=== PATIENT | male | born 1990 ===

== ENCOUNTER 2018-01-07 10:32 | Emergency (ER) | payer BC, OTHER ==
--- NOTE | 2018-01-07 11:09 | C.PDOC ---
History Of Present Illness 27 y/o male presents to the ED complaining of persistent right knee pain s/p injury on 01/01/18. Patient reports twisting the right knee while at work. Denies direct trauma or fall. Of note, patient is s/p MRI at [place] for the same on 01/01, and states "they said no ligament or cartilage injury, only swelling and water." Denies having prior x-rays for the injury, and requests to have x-ray evaluation today. Patient tried taking Motrin at home without relief. CO PERSIST R KNEE PAIN S/P INJURY 01/01. PS TWISTED R KNEE WHILE @ WORK S/P MRI @ [facility] FOR SAME ON 01/01. DENIES DIRECT INJURY. "THEY SAID NO LIGAMENT OR CARTILAGE INJURY, ONLY SWELLING AND WATER". PS NO XRAYS DONE, REQUESTING XRAY. 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 NO GROSS SUBLUX. SKIN INTACT NEURO NO FOCAL DEF REMAINDE RNEG Time Seen by Provider: 01/07/18 11:06 Chief Complaint (Nursing): Lower Extremity Problem/Injury History Per: Patient History/Exam Limitations: no limitations Onset/Duration Of Symptoms: Days Current Symptoms Are (Timing): Still Present Past Medical History Reviewed: Historical Data, Nursing Documentation, Vital Signs Vital Signs: Last Vital Signs Temp 98.6 F 01/07/18 10:40 Pulse 56 L 01/07/18 10:40 Resp 16 01/07/18 10:40 BP 148/88 01/07/18 10:40 Pulse Ox 98 01/07/18 12:03 - Medical History PMH: CAD (WPW) Family History: States: Diabetes - Social History Hx Tobacco Use: No Hx Alcohol Use: No Hx Substance Use: No - Immunization History Hx Tetanus Toxoid Vaccination: No (not sure of last tetanus) Hx Influenza Vaccination: No Hx Pneumococcal Vaccination: No Review Of Systems Except As Marked, All Systems Reviewed And Found Negative. Musculoskeletal: Positive for: Leg Pain (right knee) Skin: Negative for: Lesions, Bruising Neurological: Negative for: Weakness, Numbness, Incoordination Physical Exam - Physical Exam Appears: Non-toxic, In Acute Distress (mild) Skin: Normal Color, Warm, Dry, No Rash Head: Atraumatic, Normacephalic Eye(s): bilateral: Normal Inspection, PERRL, EOMI Oral Mucosa: Moist Neck: Normal ROM Chest: Symmetrical Respiratory: No Accessory Muscle Use, Other (NARD) Extremity: No Normal ROM (Limited ROM due to pain/swelling), No Deformity, Swelling (Moderate swelling to right knee), Other (No gross subluxation, skin intact) Pulses: Left Dorsalis Pedis: Normal, Right Dorsalis Pedis: Normal Neurological/Psych: Oriented x3, Normal Speech, Normal Motor, Normal Sensation, Other (No focal deficits) ED Course And Treatment O2 Sat by Pulse Oximetry: 98 (RA) Pulse Ox Interpretation: Normal - Other Rad R KNEE X-Ray: Interpreted by Me (NEG) Medical Decision Making Medical Decision Making: Time: 11:10 Initial Plan: --X-Ray Right Knee X-ray is negative. Counseled patient regarding diagnosis and treatment plan. Progress/Updates: Patient offered knee immobilizer, states he has one at home. Requesting CONG wrap instead. Disposition Counseled Patient/Family Regarding: Studies Performed, Diagnosis, Need For Followup - Disposition Referrals: Fede Miner MD [Staff Provider] - [facility] [Outside] [facility] [Outside] [facility]Sof[facility] PECK MD [Other] Disposition: HOME/ ROUTINE Disposition Time: 11:34 Condition: IMPROVED Prescriptions: Ibuprofen [Motrin] 600 mg PO Q6 #30 tab Instructions: Knee Sprain (DC) Forms: [facility] (Niuean), Work Excuse - Clinical Impression Clinical Impression: Knee sprain, Joint swelling - Scribe Statement The provider has reviewed the documentation as recorded by the Scribe (Christa Falk) Provider Attestation: All medical record entries made by the Scribe were at my direction and personally dictated by me. I have reviewed the chart and agree that the record accurately reflects my personal performance of the history, physical exam, medical decision making, and the department course for this patient. I have also personally directed, reviewed, and agree with the discharge instructions and disposition.
--- NOTE | 2018-01-07 11:44 | RAD ---
PROCEDURE: Right Knee Radiographs. HISTORY: TRAUMA COMPARISON: None. FINDINGS: BONES: Normal. No fractureMacro rad bone neg. JOINTS: Normal. No osteoarthritis. JOINT EFFUSION: None. OTHER FINDINGS: None. IMPRESSION: Normal radiographs of the right knee.
[2018-01-07 12:32] VITALS: BP 125/76; PULSE 62; RESP 20; TEMP 98.8; O2SAT 100
== END 2018-01-07 12:34 | disposition home or self-care (01) ==
LOC: C.ER 10:32
DX: S83.91XA Sprain of unspecified site of right knee, initial encounter (principal); X50.1XXA Overexertion from prolonged static or awkward postures, initial encounter; Y99.0 Civilian activity done for income or pay